=== PATIENT | male | born 1995 | race Asian ===

== ENCOUNTER 2016-08-16 13:27 | Observation (INO) | END 2016-08-18 13:30 | disposition home or self-care (01) | DX: R55 Syncope and collapse (principal); Z95.2 Presence of prosthetic heart valve; Z23 Encounter for immunization | CPT/HCPCS: 36415; 70450; 80048; 80307; 82550; 82553; 83735; 84100; 84484; 85025; 85610; 85730; 90686; 93005; 93306; 99285; G0378; J7030 ==